=== PATIENT | male | born 1955 | race Caucasian/White ===

== ENCOUNTER 2021-07-26 20:24 | Inpatient (IN) | payer MEDICARE ==
[~2021-07-26] VITALS: Ht 175.3 cm; Wt 95.3 kg
--- NOTE | 2021-07-26 20:45 | NUR ---
Dr Lange at bedside for MSE.
[2021-07-26] MEDS ORDERED: CARV6.252 PO (20:51)
[2021-07-26] MEDS ORDERED: PANT40TA49 PO (20:51)
[2021-07-26] MEDS ORDERED: LISI10TA29 PO (20:51)
[2021-07-26] MEDS ORDERED: CLON0.5T4 PO (20:51)
[2021-07-26] MEDS ORDERED: ESCI-9 PO (20:51)
[2021-07-26] MEDS ORDERED: ATOR40TA PO (20:51)
[2021-07-26] MEDS ORDERED: EMPA1TAB5 PO (20:51)
[2021-07-26] MEDS ORDERED: GABA-532 PO (20:51)
[2021-07-26] MEDS ORDERED: METF-442 PO (20:51)
--- NOTE | 2021-07-26 21:45 | NUR ---
Report given to [facility].
[2021-07-26 22:15] VITALS: BP 139/82
--- NOTE | 2021-07-26 22:30 | NUR ---
GPS ADMISSION NOTE: Patient is a 66 year old male , brought to the ED on a 5150 for DTS. Per hold, the patient [facility] and left upset over a relationship with a unknown female. The patient was driving his van with a gun in his lap. He was on the phone with his social services director who said she heard him load his gun and was going to kill himself. Upon face to face evaluation, the patient adamantly denied being suicidal . The patient had no insight and was not able to verbalized his problems in a way that made sense. 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 I like that girl but she made me so angry that I kicked a stove." The patient denied ever actually wanting to hurt himself , and that he said those thing for attention. The patient made a contract for safety with this staff writer. The patient was given a Patients Rights handbook and the Patient Advisement. This staff writer oriented the him to the Plan of care and the unit rules. Safety Stratiges are in place. A message left for the [facility] Doctor for medication reconciliation. The patient came with multiple bottles of medications which were sent to the pharmacy. No issues noted at this time.
[2021-07-26] MEDS ORDERED: LORAZEPAM 1 MG TABLET PO PRN (23:45)
[2021-07-26] MEDS ORDERED: ACETAMINOPHEN 325 MG TABLET PO PRN (23:45)
[2021-07-26] MEDS ORDERED: MAGNESIUM HYDROXIDE 30 ML LIQUID UDC PO PRN (23:45)
[2021-07-26] MEDS ORDERED: MAG HYDROX/AL HYDROX/SIMETH 30 ML LIQUID UDC PO PRN (23:45)
[2021-07-27] MEDS: ZOLPIDEM 5 MG TABLET PO PRN ×2 (00:05→20:52)
[2021-07-27 07:30] VITALS: BP 116/72
[2021-07-27] MEDS ORDERED: ARIPIPRAZOLE 5 MG TABLET PO SCH (09:15)
[2021-07-27] MEDS: ARIPIPRAZOLE 2 MG TABLET PO SCH (09:48)
[2021-07-27] MEDS: GABAPENTIN 300 MG CAPSULE PO SCH ×2 (09:48→17:26)
[2021-07-27] MEDS: ESCITALOPRAM OXALATE 10 MG TABLET PO SCH (09:48)
[2021-07-27] MEDS: CLONAZEPAM 0.5 MG TABLET PO PRN (11:33)
[2021-07-27] MEDS ORDERED: DEXTROSE 50% 50 ML DISP.SYRIN IV PRN (13:30)
--- NOTE | 2021-07-27 14:12 | NUR ---
The patient remained stable. no behavioral issues identified during my coverage. PRN Clonazepam given at 1133H. Patient is complaint with meds. no distress noted. safety measures maintained. Endorsed to GLENDA Jarvis for continuity of care.
--- NOTE | 2021-07-27 15:22 | NUR ---
Gps/Controls Project Engineer- Patient's mother wants to last picker keys of the can ,phone given to Evan to talk to his mother, claimed ok to give the car keys will last picker sometime this afternoon or tomorrow per patient. [place] taken out of the safe and was placed iin a plastic bag in his chart.
[2021-07-27 16:00] VITALS: BP 135/84
[2021-07-27] MEDS: BLOOD SUGAR DIAGNOSTIC 1 EACH STRIP VI SCH ×2 (16:46→21:25)
[2021-07-27] MEDS ORDERED: GABAPENTIN 100 MG CAPSULE PO SCH (17:00)
[2021-07-27] MEDS ORDERED: GABAPENTIN 300 MG CAPSULE PO SCH (17:00)
[2021-07-27] MEDS: METFORMIN HCL 500 MG TABLET PO SCH (17:26)
[2021-07-27] MEDS: INSULIN REGULAR, HUMAN 300 UNIT/3 ML VIAL SQ PRN ×2 (17:29→21:33)
[2021-07-27] MEDS: CARVEDILOL 6.25 MG TABLET PO SCH (17:38)
--- NOTE | 2021-07-27 18:27 | NUR ---
GPS: PT ALERT AND VERBALLY RESPONSIVE. DENIES ANY PAIN OR DISCOMFORT. PT EXPRESSED TO ANALOG DEVICE DESIGNER IF IT IS OKAY TO SMOKE OUTSIDE THE PATIO. EXPLAINED TO PT, STATED THAT HE NEEDS MORE THE SMOKING THAN THE MEDS HE WILL BE TAKING. PT ABLE TO PARTICIPATE WITH GROUP THERAPY. NO AGITATION AT THIS TIME. PT COMPLIANT WITH MEDS AND CARE. NOTED PT EASILY GETS ANXIOUS.
[2021-07-27 20:00] VITALS: BP 113/77
[2021-07-27] MEDS: ATORVASTATIN 40 MG TABLET PO SCH (20:51)
[2021-07-28] MEDS: CLONAZEPAM 0.5 MG TABLET PO PRN ×2 (00:13→08:30)
[2021-07-28] MEDS: PANTOPRAZOLE SODIUM 40 MG TABLET.DR PO SCH (06:49)
[2021-07-28] MEDS: BLOOD SUGAR DIAGNOSTIC 1 EACH STRIP VI SCH ×4 (06:50→21:01)
[2021-07-28 07:27] LABS: MEAN CORPUSCULAR HEMOGLOBIN 27.7 uug (23.8-33.4); MEAN CORPUSCULAR VOLUME 84.5 fL (73.0-96.2); PLATELET COUNT (AUTO) 228 K/uL (152-348)
[2021-07-28 07:30] VITALS: BP_SYST 113; BP_SYST 136; BP_DIAS 63; BP_DIAS 77
[2021-07-28 07:33] LABS: BILIRUBIN,TOTAL 0.3 mg/dL (0.2-1.0); CREATININE 1.3 mg/dL (0.6-1.3); MAGNESIUM 1.9 mg/dL (1.8-2.4); PHOSPHOROUS 3.5 mg/dL (2.5-4.9); TOTAL PROTEIN, SERUM 6.6 g/dL (6.4-8.2)
[2021-07-28] MEDS: INSULIN REGULAR, HUMAN 300 UNIT/3 ML VIAL SQ PRN ×4 (07:53→21:09)
[2021-07-28] MEDS: ARIPIPRAZOLE 2 MG TABLET PO SCH (08:09)
[2021-07-28] MEDS: LISINOPRIL 10 MG TABLET PO SCH (08:09)
[2021-07-28] MEDS: ESCITALOPRAM OXALATE 10 MG TABLET PO SCH (08:09)
[2021-07-28] MEDS: GABAPENTIN 300 MG CAPSULE PO SCH ×2 (08:09→16:42)
[2021-07-28] MEDS: CARVEDILOL 6.25 MG TABLET PO SCH ×2 (08:09→16:42)
[2021-07-28] MEDS: METFORMIN HCL 500 MG TABLET PO SCH ×2 (08:09→17:02)
--- NOTE | 2021-07-28 12:32 | NUR ---
MARTHA Initial Discharge Note: Pt was admitted to [facility] on a 5150 hold for danger to self. Pt was brought in from [facility]. MARTHA contacted pt's mother, Lyndsey ([phone]) who is aware of the reason for pt's hospitalization and agreeable with the current care plan regarding pt's hold. MARTHA contacted Franklin Mosqueda ([place] SW) [phone] who stated that the [facility] where pt currently resides is working on a transfer facility for him upon discharge from [facility] and will contact this SW to confirm accepting facility information. Franklin stated, Tamica ([phone] will contact MARTHA and the customs officer, Kristi ([phone]) regarding pt's discharge information upon discharge. Franklin also stated that the [facility] ([phone]) is currently assisting with placement for the pt and will also provide transportation from [facility] to the finalized discharge facility information. MARTHA contacted [facility] and left a voicemail for a call back to discuss pt's discharge updates. MARTHA will continue to work with pt, family, and MD to ensure a safe and proper discharge plan.
--- NOTE | 2021-07-28 12:33 | NUR ---
MARTHA Admit Source: Pt was admitted to [facility] on a 5150 hold for danger to self. Pt was brought in from [facility]. MARTHA contacted pt's mother, Lyndsey ([phone]) who is aware of the reason for pt's hospitalization and agreeable with the current care plan regarding pt's hold. MARTHA contacted Franklin Mosqueda ([place] SW) [phone] who stated that the [facility] where pt currently resides is working on a transfer facility for him upon discharge from [facility] and will contact this SW to confirm accepting facility information. Franklin stated, Tamica ([phone] will contact MARTHA and the chief commercial officer, Kristi ([phone]) regarding pt's discharge information upon discharge. Franklin also stated that the [facility] In patient unit ([phone]) is currently assisting with placement for the pt and will also provide transportation from [facility] to the finalized discharge facility information. MARTHA contacted [facility] and left a voicemail for a call back to discuss pt's discharge updates. MARTHA will continue to work with pt, family, and MD to ensure a safe and proper discharge plan.
--- NOTE | 2021-07-28 13:48 | NUR ---
Firearms Report: Structural Steel Equipment Erector completed and submitted a [employer] firearms report for 5150 a danger to self. A copy of report has been placed in patient chart.
[2021-07-28 20:12] VITALS: BP 103/54
[2021-07-28] MEDS: ZOLPIDEM 5 MG TABLET PO PRN (21:01)
[2021-07-28] MEDS: ATORVASTATIN 40 MG TABLET PO SCH (21:01)
[2021-07-29] MEDS: CLONAZEPAM 0.5 MG TABLET PO PRN ×2 (01:55→08:22)
[2021-07-29] MEDS: PANTOPRAZOLE SODIUM 40 MG TABLET.DR PO SCH (07:00)
[2021-07-29] MEDS: BLOOD SUGAR DIAGNOSTIC 1 EACH STRIP VI SCH ×4 (07:45→21:00)
[2021-07-29 08:19] VITALS: BP 110/70
[2021-07-29] MEDS: INSULIN REGULAR, HUMAN 300 UNIT/3 ML VIAL SQ PRN ×4 (08:19→21:03)
[2021-07-29] MEDS: GABAPENTIN 300 MG CAPSULE PO SCH ×2 (08:22→16:09)
[2021-07-29] MEDS: METFORMIN HCL 500 MG TABLET PO SCH ×2 (08:22→17:37)
[2021-07-29] MEDS: CARVEDILOL 6.25 MG TABLET PO SCH ×2 (08:23→16:09)
[2021-07-29] MEDS: ARIPIPRAZOLE 2 MG TABLET PO SCH (08:23)
[2021-07-29] MEDS: ESCITALOPRAM OXALATE 10 MG TABLET PO SCH (08:23)
[2021-07-29] MEDS: LISINOPRIL 10 MG TABLET PO SCH (08:23)
[2021-07-29 16:15] VITALS: BP 109/58
[2021-07-29 20:00] VITALS: BP 107/60
[2021-07-29] MEDS: ZOLPIDEM 5 MG TABLET PO PRN ×2 (20:29→22:19)
[2021-07-29] MEDS: ATORVASTATIN 40 MG TABLET PO SCH (20:29)
--- NOTE | 2021-07-29 21:39 | NUR ---
GPS/NSG Attempted to contact mother for Certification review hearing taking place on 07/31/21 at 10:30 a.m. however I was unable to do so. Will endorse to day shift to follow up.
[2021-07-30] MEDS: CLONAZEPAM 0.5 MG TABLET PO PRN ×3 (01:21→23:41)
[2021-07-30] MEDS: BLOOD SUGAR DIAGNOSTIC 1 EACH STRIP VI SCH ×4 (06:46→20:42)
[2021-07-30] MEDS: PANTOPRAZOLE SODIUM 40 MG TABLET.DR PO SCH (06:47)
[2021-07-30 08:08] VITALS: BP 112/64
[2021-07-30] MEDS: ARIPIPRAZOLE 2 MG TABLET PO SCH (08:09)
[2021-07-30] MEDS: METFORMIN HCL 500 MG TABLET PO SCH ×2 (08:10→16:36)
[2021-07-30] MEDS: ESCITALOPRAM OXALATE 10 MG TABLET PO SCH (08:10)
[2021-07-30] MEDS: CARVEDILOL 6.25 MG TABLET PO SCH ×2 (08:10→16:36)
[2021-07-30] MEDS: GABAPENTIN 300 MG CAPSULE PO SCH ×2 (08:11→16:36)
[2021-07-30] MEDS: LISINOPRIL 10 MG TABLET PO SCH (08:11)
[2021-07-30] MEDS: INSULIN REGULAR, HUMAN 300 UNIT/3 ML VIAL SQ PRN ×3 (11:12→20:45)
[2021-07-30 16:17] VITALS: BP 127/74
--- NOTE | 2021-07-30 17:51 | NUR ---
patient is alert and oriented x4, verbalized needs known, remains isolative and withdrawn ,denies any SI/HI now.encourage to verbalizes feels to staffs ,encourage to attend group activity ,BS monitoring closely .
[2021-07-30 19:38] VITALS: BP 109/71
[2021-07-30] MEDS: ATORVASTATIN 40 MG TABLET PO SCH (20:41)
[2021-07-31] MEDS: PANTOPRAZOLE SODIUM 40 MG TABLET.DR PO SCH (06:15)
[2021-07-31] MEDS: BLOOD SUGAR DIAGNOSTIC 1 EACH STRIP VI SCH ×4 (06:34→20:31)
[2021-07-31 08:00] VITALS: BP 102/57
[2021-07-31] MEDS: GABAPENTIN 300 MG CAPSULE PO SCH ×2 (08:17→16:46)
[2021-07-31] MEDS: ESCITALOPRAM OXALATE 10 MG TABLET PO SCH (08:17)
[2021-07-31] MEDS: ARIPIPRAZOLE 2 MG TABLET PO SCH (08:17)
[2021-07-31] MEDS: METFORMIN HCL 500 MG TABLET PO SCH ×2 (08:17→16:48)
[2021-07-31] MEDS: CARVEDILOL 6.25 MG TABLET PO SCH ×2 (08:20→16:47)
[2021-07-31] MEDS: LISINOPRIL 10 MG TABLET PO SCH (08:24)
[2021-07-31] MEDS: INSULIN REGULAR, HUMAN 300 UNIT/3 ML VIAL SQ PRN ×3 (08:26→20:32)
--- NOTE | 2021-07-31 09:17 | NUR ---
Received patient is irritables angry loud with poor insight and judgement ,not taking about suicidal ideation but easy get irritable.encourage to attend in group activity and express his feeling to staffs, will continue close monitoring.
[2021-07-31] MEDS: CLONAZEPAM 0.5 MG TABLET PO PRN ×2 (10:49→21:17)
--- NOTE | 2021-07-31 12:02 | NUR ---
MARTHA Firearms Update Note: MARTHA spoke with Gretta at the [place] [employer] who stated the per records, the pt's firearms have been confiscated.
--- NOTE | 2021-07-31 12:02 | NUR ---
MARTHA Firearms Update Note Update: MARTHA spoke with Norma at the [place] [employer] who stated the per records, the pt's firearms have been confiscated.
[2021-07-31 16:53] VITALS: BP 110/67
--- NOTE | 2021-07-31 18:25 | NUR ---
14 days [facility] is held, possible discharge in am, patient and family made aware.
[2021-07-31 20:19] VITALS: BP 102/58
[2021-07-31] MEDS: ATORVASTATIN 40 MG TABLET PO SCH (20:31)
[2021-08-01] MEDS: ZOLPIDEM 5 MG TABLET PO PRN ×2 (01:09→21:04)
[2021-08-01] MEDS: PANTOPRAZOLE SODIUM 40 MG TABLET.DR PO SCH (07:03)
[2021-08-01] MEDS: BLOOD SUGAR DIAGNOSTIC 1 EACH STRIP VI SCH ×4 (07:04→20:32)
[2021-08-01 07:30] VITALS: BP_SYST 108; BP_SYST 115; BP_DIAS 67; BP_DIAS 70
[2021-08-01] MEDS: METFORMIN HCL 500 MG TABLET PO SCH ×2 (08:28→17:27)
[2021-08-01] MEDS: CARVEDILOL 6.25 MG TABLET PO SCH ×2 (08:28→17:29)
[2021-08-01] MEDS: ARIPIPRAZOLE 2 MG TABLET PO SCH (08:28)
[2021-08-01] MEDS: GABAPENTIN 300 MG CAPSULE PO SCH ×2 (08:30→17:27)
[2021-08-01] MEDS: LISINOPRIL 10 MG TABLET PO SCH (08:30)
[2021-08-01] MEDS: ESCITALOPRAM OXALATE 10 MG TABLET PO SCH (08:30)
[2021-08-01] MEDS: INSULIN REGULAR, HUMAN 300 UNIT/3 ML VIAL SQ PRN ×4 (08:32→20:48)
--- NOTE | 2021-08-01 08:59 | NUR ---
MARTHA Discharge Note: Pt will be discharged to [facility] via taxi transportation provided by [facility]. MARTHA spoke with pts mother, Lyndsey ([phone]) who states they are ready to accept the patient today. Pt is aware and agreeable with discharge plans. Pt is alert and oriented x4, is unable to plan for self-care at this time; however, is willing to accept care at mothers home by family. Pt denies any suicidal or homicidal ideation. Pt will follow-up with his outpatient MD post discharge. Pt did not clarify further information and pt refused SWs assistance with outpatient services. Pt presents with calm mood and congruent affect. MARTHA provided pt with: [facility] ([phone]) Dr. Proras Psychiatrist. (fax: [phone]) [address] [place] [id number] and [facility]: [facility] [address] [place] [address] placed a copy in pts chart.
--- NOTE | 2021-08-01 09:11 | NUR ---
MARTHA Discharge Note Update: Pt will be discharged to [facility] via taxi transportation provided by [facility] from where pt will discharge to his mothers home [address] [place], [place] [address]. MARTHA spoke with pts mother, Lyndsey ([phone]) who states they are ready to accept the patient today. Pt is aware and agreeable with discharge plans. Pt is alert and oriented x4, is unable to plan for self-care at this time; however, is willing to accept care at mothers home by family. Pt denies any suicidal or homicidal ideation. Pt will follow-up with his outpatient MD post discharge. Pt did not clarify further information and pt refused SWs assistance with outpatient services. Pt presents with calm mood and congruent affect. MARTHA provided pt with: [facility] ([phone]) Dr. Porras Psychiatrist. (fax: [phone]) [address] [facility] [place] [address] and [facility]: [facility] [address] [place] [address] placed a copy in pts chart.
--- NOTE | 2021-08-01 10:00 | NUR ---
GPS: PT ALERT AND VERBALLY RESPONSIVE. WILL BE DISCHARGE TODAY GOING TO MOTHER'S HOME VIA A [employer] AND [employer] TRANSPORTATION AT 1500. PT DENIES ANY PAIN OR DISCOMFORT AT THIS TIME. PT PARTICIPATES WITH GROUP THERAPY. COMPLIANT WITH CARE AND MEDICATIONS. NOTIFIED PT THAT HE WILL BE DISCHARGE TODAY.
[2021-08-01] MEDS: CLONAZEPAM 0.5 MG TABLET PO PRN ×2 (10:39→23:42)
--- NOTE | 2021-08-01 12:30 | NUR ---
MARTHA Discharge Update: Pt's sister, Veena ([phone]) called and stated that they cannot take the pt home today due to family emergency. Family asked for the pt to be sent to a temporary SNF or for discharge to be postponed until pt can return home. MARTHA notified Dr. Skinner and is aware and agreeable with the postponed discharged.
--- NOTE | 2021-08-01 14:00 | NUR ---
GPS: PT DISCHARGE WAS CANCELLED TODAY. NOTIFIED PT, WAS NOT HAPPY WITH IT. CALLED PT MOM AND FAMILY. DR LARSEN MADE AWARE. SW WILL LOOK FOR PLACEMENT.
[2021-08-01 15:25] VITALS: BP 114/63
--- NOTE | 2021-08-01 18:24 | NUR ---
GPS: PT WITH EPISODE OF SADNESS THIS AFTERNOON AFTER HE WAS NOTIFIED BY MARTHA THAT HE WILL NO DISCHARGE TODAY. PER SW, PT WILL HAVE A WORD WITH PSYCHIATRIST TOMORROW AND NOW ABLE TO UNDERSTAND WHY HE'S NOT GOING HOME TODAY. EXPLAINED TO PT. DENIES ANY PAIN OR DISCOMFORT. PT ASKING POLITELY ABOUT THE NEXT SCHEDULE OF [place] PT WAS GIVEN THIS MORNING. PT KNOWS THAT HE WILL HAVE THE NEXT DOSE TONIGHT. NOT IN DISTRESS AT THIS TIME. PT WAS ABLE TO TALK WITH BODY ARTIST ABOUT HIS MARINES DAYS GOING TO [place].
[2021-08-01 19:59] VITALS: BP 120/74
[2021-08-01] MEDS: ATORVASTATIN 40 MG TABLET PO SCH (20:13)
[2021-08-02] MEDS: PANTOPRAZOLE SODIUM 40 MG TABLET.DR PO SCH (06:21)
[2021-08-02] MEDS: BLOOD SUGAR DIAGNOSTIC 1 EACH STRIP VI SCH ×2 (06:40→11:30)
[2021-08-02 07:44] VITALS: BP_SYST 105; BP_SYST 139; BP_DIAS 56; BP_DIAS 80
[2021-08-02] MEDS ORDERED: GLIMEPIRIDE 2 MG TABLET PO SCH (08:00)
[2021-08-02] MEDS: ESCITALOPRAM OXALATE 10 MG TABLET PO SCH (08:26)
[2021-08-02] MEDS: ARIPIPRAZOLE 2 MG TABLET PO SCH (08:26)
[2021-08-02] MEDS: METFORMIN HCL 500 MG TABLET PO SCH (08:26)
[2021-08-02] MEDS: GABAPENTIN 300 MG CAPSULE PO SCH (08:26)
[2021-08-02 08:27] VITALS: BP 105/56
[2021-08-02] MEDS: LISINOPRIL 10 MG TABLET PO SCH (08:27)
[2021-08-02] MEDS: CARVEDILOL 6.25 MG TABLET PO SCH (08:27)
--- NOTE | 2021-08-02 09:33 | NUR ---
MARTHA Discharge Note: Pt will be discharged to Home [address] [place] [id number] via transportation by pts, sister, Veena ([phone]) to home. MARTHA spoke with pts motherLyndsey ([phone]) who is aware and agreeable with the discharge plan. MARTHA also spoke with pts sister, Veena who states she are ready to accept the patient today. Pt is aware and agreeable with discharge plans. Pt is alert and oriented x4, is unable to plan for self-care at this time; however, is willing to accept care at mothers home by family. Pt denies any suicidal or homicidal ideation. Pt will follow-up with his outpatient psychiatrist, Dr. Anders. Pt presents with calm mood and congruent affect. MARTHA provided pt with: [facility] ([phone]) Dr. Porras Psychiatrist. (fax: [phone]) [address] [place] [address] and [facility]: [facility] [address] [place] [address] placed a copy in pts chart. PHARMACY: [facility] ([phone]) [address] [facility] [place] [address].
--- NOTE | 2021-08-02 12:29 | NUR ---
Received patient awake in his room. A/O X 3 to person, place. Pt. is calm, cooperative with care and compliant with medications. Pt. is engage in verbal approach, fixated on leaving the hospital, anxious at times. Denies SI/HI AH/VH. E motional support given. Fall and safety precautions implemented.
--- NOTE | 2021-08-02 12:49 | NUR ---
Received orders to discharge this patient. A/O X 3 to person, place, situation. Denies SI/HI AH/VH. Denies SOB. Compliant with medications.Pt will be discharged to Home [address] [place] [id number] via transportation by pts, sister, Veena ([phone]) to home. Barrel Burner from our hospital refused to prescribed medications. Per patient's family they are in process of waiting for Dr. Viviane Martinez to be the General Practitioner. Patient was given all belongings including medications and valuables. Patient left the unit at 11:30. Fall and safety precautions implemented.
[2021-08-02] MEDS ORDERED: ATORVASTATIN 10 MG TABLET PO SCH (21:00)
== END 2021-08-02 11:30 | disposition home or self-care (01) | DRG 885 ==
LOC: ER 20:26 → GPS 22:00
PROVIDERS: ADMIT Psychiatry & Neurology Psychiatry
DX: F31.5 Bipolar disorder, current episode depressed, severe, with psychotic features (principal); R45.851 Suicidal ideations; F13.20 Sedative, hypnotic or anxiolytic dependence, uncomplicated; D68.59 Other primary thrombophilia; F17.210 Nicotine dependence, cigarettes, uncomplicated; E11.40 Type 2 diabetes mellitus with diabetic neuropathy, unspecified; Z95.0 Presence of cardiac pacemaker; I48.91 Unspecified atrial fibrillation; G47.33 Obstructive sleep apnea (adult) (pediatric); Z79.84 Long term (current) use of oral hypoglycemic drugs; Z79.899 Other long term (current) drug therapy; I10 Essential (primary) hypertension
CPT/HCPCS: 36415; 83735; 84100; 84443; 85025; A4663; J1815